=== PATIENT | male | born 1960 | race Caucasian/White ===

== ENCOUNTER 2017-01-18 07:50 | Day surgery (SDC) | payer MEDICARE, MEDICAID ==
[~2017-01-18] VITALS: Ht 177.8 cm; Wt 126.9 kg
[2017-01-18] MEDS ORDERED: IOHEXOL 350 MG/ML 50 ML BTL (for RAD DIAG) OTHER ONE (07:51)
[2017-01-18 08:10] VITALS: BP 102/54; PULSE 68; RESP 20; TEMP 97.5; O2SAT 90
[2017-01-18] MEDS ORDERED: SEVE800T PO (08:11)
[2017-01-18] MEDS ORDERED: ERGO2000 PO (08:11)
[2017-01-18] MEDS ORDERED: CLON0.2T PO (08:11)
[2017-01-18] MEDS ORDERED: SENS90TA PO (08:11)
[2017-01-18] MEDS ORDERED: FURO1TAB61 PO (08:11)
[2017-01-18] MEDS ORDERED: LISI10TA3 PO (08:11)
[2017-01-18] MEDS ORDERED: ATOR20TA15 PO (08:11)
[2017-01-18] MEDS ORDERED: ALLO100T PO (08:11)
[2017-01-18] MEDS ORDERED: LORA-373 PO (08:11)
[2017-01-18] MEDS ORDERED: GABA300C5 PO (08:11)
[2017-01-18] MEDS ORDERED: CINA30 PO (08:11)
[2017-01-18] MEDS ORDERED: ZOFR4TAB PO (08:11)
[2017-01-18] MEDS ORDERED: CARV3.125 PO (08:11)
[2017-01-18] MEDS ORDERED: SODIUM CHLORIDE FLUSH PRN IV FLUSH (09:00)
[2017-01-18] MEDS ORDERED: SODIUM CHLORIDE FLUSH BID IV FLUSH SCH (09:00)
[2017-01-18] MEDS ORDERED: MIDAZOLAM HCL 2 MG/2 ML VIAL ONE (09:16)
[2017-01-18 09:21] LABS: BICARBONATE 25.5 MEQ/L (21.0-32.0); POTASSIUM 4.5 MEQ/L (3.5-5.1)
[2017-01-18] MEDS ORDERED: VANCOMYCIN HCL 1000 MG VIAL ONE (09:40)
--- NOTE | 2017-01-18 09:59 | PD.RAD ---
Post Procedure Progress Note Pre Procedure Diagnosis: (1) PD catheter dysfunction Post Procedure Diagnosis: (1) PD catheter dysfunction Procedure Date: Jan 18, 2017 Supervising Radiologist: Santiago Mccarthy Anesthesia: Conscious Sedation Plan of Activity Patient to Unit: ROPU Patient Condition: Good Additional Comments: PD catheter repositioned to the left abdomen from the right pelvis. catheter flushes and aspirated normally. Pt. tolerated the procedure well. See PACS Report for procedural detail/treatment Santiago Mccarthy MD Jan 18, 2017 09:59
[2017-01-18 10:05] VITALS: BP 99/50; PULSE 61; RESP 20; TEMP 97.5; O2SAT 92
[2017-01-18 10:20] VITALS: BP 93/54; PULSE 62; RESP 20; O2SAT 92
[2017-01-18 10:45] VITALS: BP 113/56; PULSE 64; RESP 20; O2SAT 92
--- NOTE | 2017-01-18 10:58 | RADRPT ---
EXAM DATE/TIME: 01/18/2017 09:10 [facility] COMPARISON: PERITONEOGRAM, January 18, 2017, 0:00. INDICATIONS : Patient with history of end stage renal disease in need of evaluation and possible reposition of a pe ritoneal catheter. MEDICAL HISTORY : 1.DM 2.ESRD 3.Osteodystrophy 4.Osteomalacia 5.Hyperlipidemia 6.Iron deficiency 7.CKD 8.Hyperparathyroidism SURGICAL HISTORY : 1.AVF fistula 2.Nephrectomy 3.Right knee 4.Hernia repair x 2 5.Peritoneal catheter placement ENCOUNTER: Initial ACUITY: > 1 year PAIN SCORE: 0/10 FLUORO TIME: 0.5 minutes IMAGE SERIES: 4 SEDATION TIME: 30minutes CONTRAST: 15 cc Omnipaque (iohexol) 350 MEDICATION(S): 1.) 0.5 mg midazolam (Versed) IV 2.) 25 mcg fentanyl (Sublimaze) IV 3.) 1 g Vancomycin IV PROCEDURE : 1. Peritoneogram 2. Conscious sedation with continuous EKG and Oximetry monitoring. 3. Peritoneal catheter repositioning. The risks, benefits and alternatives to the procedure were explained and verbal and written consent w as obtained. The site was prepped in sterile fashion. Full sterile technique was used, including ca p, mask, sterile gloves and gown and a large sterile sheet. Hand hygiene and 2% chlorhexidine prep w as utilized per protocol for cutaneous antisepsis with appropriate dry time for site. The catheter was accessed using sterile technique. Approximately 5 cc of contrast was administered to the catheter. There was free flow of contrast into the peritoneal cavity. The patient's primary comp laint was the catheter would not drain in the sitting position. A 0.035 angle Glidewire was advanced through the catheter. The catheter was repositioned from the low est point in the pelvis on the left over to the right side of the abdomen. Following repositioning of the catheter there was drainage dialysis fluid from the catheter. Conscious sedation was performed with the prescribed dosages and duration as above in the presence of an independent trained radiology nurse to assist in the monitoring of the patient. EKG and oximetry remained stable throughout the procedure. CONCLUSION: 1. Uncomplicated repositioning of the patient's peritoneal dialysis catheter. Santiago Mccarthy MD on January 18, 2017 at 10:53 Board Certified Radiologist. This report was verified electronically.
[2017-01-18 11:15] VITALS: BP 118/41; PULSE 63; RESP 20; O2SAT 92
[2017-01-18 11:45] VITALS: BP 107/59; PULSE 65; RESP 16; O2SAT 92
== END 2017-01-18 12:07 | disposition home or self-care (01) ==
LOC: HROP 07:50 → HRIP 07:51 → HROP 12:07
DX: T85.611A Breakdown (mechanical) of intraperitoneal dialysis catheter, initial encounter (principal); N18.6 End stage renal disease; E78.5 Hyperlipidemia, unspecified; E11.9 Type 2 diabetes mellitus without complications; D50.9 Iron deficiency anemia, unspecified
CPT/HCPCS: 49999; 74190; 80048; 99152; 99153; C1769; J2250; J3010; J3370; Q9967; 49400

== ENCOUNTER 2017-02-06 08:08 | Day surgery (SDC) | payer MEDICARE, MEDICAID ==
[~2017-02-06] VITALS: Ht 177.8 cm; Wt 122.7 kg
[~2017-02-06 08:08] MED LIST: ALLO100T PO; ATOR20TA15 PO; CARV3.125 PO; CINA30 PO; CLON0.2T PO; ERGO2000 PO; FURO1TAB61 PO; GABA300C5 PO; LISI10TA3 PO; LORA-373 PO; SENS90TA PO; SEVE800T PO; ZOFR4TAB PO
[2017-02-06] MEDS ORDERED: IOHEXOL 350 MG/ML 100 ML BTL (for RAD DIAG) OTHER ONE (08:09)
[2017-02-06 08:31] VITALS: BP 214/107; PULSE 74; RESP 20; TEMP 97.8; O2SAT 95
[2017-02-06] MEDS ORDERED: SODIUM CHLORIDE 0.9% 1000 ML IV SCH (09:00)
[2017-02-06] MEDS ORDERED: MIDAZOLAM HCL 5 MG/5 ML VIAL ONE (09:11)
[2017-02-06] MEDS ORDERED: ceFAZolin 2 GM PREMIX 50 ML ONE (09:33)
[2017-02-06 09:35] LABS: POTASSIUM 5.1 MEQ/L (3.5-5.1)
[2017-02-06 09:50] VITALS: BP 164/105; PULSE 72; RESP 18; TEMP 97.6; O2SAT 92
--- NOTE | 2017-02-06 09:51 | PD.RAD ---
Post Procedure Progress Note Pre Procedure Diagnosis: (1) PD catheter dysfunction Post Procedure Diagnosis: (1) PD catheter dysfunction Procedure Date: Feb 06, 2017 Supervising Radiologist: Santiago Tomlin Proceduralist/Assist: RT Bulmaro(R), RT Denia(R) Anesthesia: Analgesia, Conscious Sedation Plan of Activity Patient to Unit: ROPU Patient Condition: Good See PACS Report for procedural detail/treatment Drainage Procedure Procedure 1 Imaging Guidance: Fluoroscopy Procedure Type: Peritoneal Catheter Tunneled Procedure: Reposition, Evaluation Findings: Fibrin sheath around cath tip in RLQ. Catheter manipulated into right paracolic gutter. Injects and aspirates without difficulty. Santiago Tomlin MD Feb 06, 2017 09:51
[2017-02-06 10:05] VITALS: BP 156/86; PULSE 73; RESP 18; O2SAT 92
[2017-02-06 10:35] VITALS: BP 156/85; PULSE 76; RESP 18; O2SAT 95
--- NOTE | 2017-02-06 12:35 | RADRPT ---
EXAM DATE/TIME: 02/06/2017 08:48 [facility] COMPARISON: PERITONEAL CATHETER REPOSITION, January 18, 2017, 9:10. INDICATIONS : Patient presents with non functioning peritoneal dialysis catheter in need of evaluation with manipul ation. MEDICAL HISTORY : 1.DM 2.ESRD 3.Osteodystrophy 4.Osteomalacia 5.Hyperlipidemia 6.Iron deficiency 7.CKD 8.Hyperparathyroidism SURGICAL HISTORY : 1.AVF fistula 2.Nephrectomy 3.Right knee 4.Hernia repair x 2 5.Peritoneal catheter placement ENCOUNTER: Subsequent ACUITY: > 1 year PAIN SCORE: 0/10 LOCATION: N/A FLUORO TIME: 1.7 minutes IMAGE SERIES: 3 SEDATION TIME: 10minutes CONTRAST: 15 cc Omnipaque (iohexol) 350 MEDICATION(S): 1.) 0.5 mg midazolam (Versed) IV 2.) 25 mcg fentanyl (Sublimaze) IV 3.) 2 g cefazolin (Ancef) IV PROCEDURE : 1. injection and repositioning of poorly functioning PD catheter. 2. Conscious sedation with continuous EKG and Oximetry monitoring. The risks, benefits and alternatives to the procedure were explained and verbal and written consent w as obtained. The site was prepped in sterile fashion. Full sterile technique was used, including ca p, mask, sterile gloves and gown and a large sterile sheet. Hand hygiene and 2% chlorhexidine prep w as utilized per protocol for cutaneous antisepsis with appropriate dry time for site. The skin and s ubcutaneous tissues were infiltrated with local anesthetic solution. PD catheter it was injected showing an initial cephalad course, 180 turn with a proximal connector i n the distal loop coiled over the superior aspect of the right SI joint. There appear to be a fibrin sheath around the coil. A stiff Glidewire was advanced through the catheter and used to reposition th e distal end of the catheter into the right paracolic gutter. Contrast injection showed free flow fro m the catheter into the paracolic gutter and the catheter appear to aspirate freely. Conscious sedation was performed with the prescribed dosages and duration as above in the presence of an independent trained radiology nurse to assist in the monitoring of the patient. EKG and oximetry remained stable throughout the procedure. CONCLUSION: Successful repositioning of the PD catheter into the right paracolic gutter region as above. Santiago Tomlin MD on February 06, 2017 at 12:30 Board Certified Radiologist. This report was verified electronically.
== END 2017-02-06 11:13 | disposition home or self-care (01) ==
LOC: HROP 08:08 → HRIP 08:10 → HROP 11:13
PROVIDERS: ATTEND Radiology Body Imaging
DX: T82.898A Other specified complication of vascular prosthetic devices, implants and grafts, initial encounter (principal); E11.22 Type 2 diabetes mellitus with diabetic chronic kidney disease; N18.6 End stage renal disease; E78.5 Hyperlipidemia, unspecified; E21.3 Hyperparathyroidism, unspecified; Y83.8 Other surgical procedures as the cause of abnormal reaction of the patient, or of later complication, without mention of misadventure at the time of the procedure
CPT/HCPCS: 49400; 49999; 74190; 80048; 99152; C1769; J0690; J2250; J3010; J7030; Q9967

== ENCOUNTER 2017-10-19 10:23 | Day surgery (SDC) | payer MEDICARE, MEDICAID ==
[~2017-10-19] VITALS: Ht 177.8 cm; Wt 120.0 kg
[~2017-10-19 10:23] MED LIST changes: -LORA-373 PO; +LORA0.5T PO; +SEVE800 PO; -SEVE800T PO
[2017-10-19] MEDS ORDERED: IOHEXOL 350 MG/ML 50 ML BTL (for RAD DIAG) OTHER ONE (10:24)
[2017-10-19 10:41] VITALS: BP 162/87; PULSE 70; RESP 20; TEMP 97.9; O2SAT 98
[2017-10-19] MEDS ORDERED: LYRI50CA PO (10:49)
[2017-10-19] MEDS ORDERED: ASPI81CH6 CHEW (10:49)
[2017-10-19] MEDS ORDERED: COLA100C5 PO (10:49)
[2017-10-19] MEDS ORDERED: SODIUM CHLORIDE 0.9% 1000 ML IV SCH (11:15)
[2017-10-19] MEDS ORDERED: ceFAZolin 2 GM PREMIX 50 ML - implanted port/tunneled catheter insertion IV SCH (11:15)
[2017-10-19 11:59] LABS: AUTOMATED NEUTROPHIL # 3.7 TH/MM3 (1.8-7.7); BASOPHIL % 0.7 % (0.0-2.0); EOSINOPHIL # 0.3 TH/MM3 (0-0.4); EOSINOPHIL % 4.5 % (0.0-4.0); HEMATOCRIT 25.9 % (39.0-51.0); HEMOGLOBIN 8.5 GM/DL (13.0-17.0); LYMPH % 17.2 % (9.0-44.0); MEAN CELL VOLUME 100.9 FL (80.0-100.0); MEAN CORPUSCULAR HEMOGLOBIN 33.3 PG (27.0-34.0); MEAN PLATELET VOLUME 8.6 FL (7.0-11.0); MONO % 13.5 % (0.0-8.0); MONOCYTE # 0.8 TH/MM3 (0-0.9); NEUT % 64.1 % (16.0-70.0); PLATELET COUNT 170 TH/MM3 (150-450); RED BLOOD COUNT 2.56 MIL/MM3 (4.50-5.90); RED CELL DISTRIBUTION WIDTH 15.6 % (11.6-17.2); WHITE BLOOD COUNT 5.7 TH/MM3 (4.0-11.0)
[2017-10-19 12:07] LABS: PROTHROMBIN TIME - PATIENT 10.4 SEC (9.8-11.6)
[2017-10-19 12:19] LABS: BICARBONATE 25.2 MEQ/L (21.0-32.0)
[2017-10-19 12:36] LABS: CREATININE 15.76 MG/DL (0.60-1.30)
[2017-10-19] MEDS ORDERED: MIDAZOLAM HCL 2 MG/2 ML VIAL ONE (12:39)
--- NOTE | 2017-10-19 13:32 | PD.RAD ---
Post Procedure Progress Note Pre Procedure Diagnosis: (1) PD catheter dysfunction Post Procedure Diagnosis: (1) PD catheter dysfunction Procedure Date: Oct 19, 2017 Supervising Radiologist: Santiago Mccarthy Estimated blood loss: none Anesthesia: Local, Conscious Sedation Plan of Activity Patient to Unit: ROPU Patient Condition: Good Additional Comments: PD cath evaluated. contrast flows freely from the catheter. The catheter does have a kink as it comes through the peritoneal lining. Multiple attempts made to reposition the catheter lower down into the pelvis. Full dictated report to follow See PACS Report for procedural detail/treatment Santiago Mccarthy MD Oct 19, 2017 13:32
[2017-10-19 13:40] VITALS: BP 147/80; PULSE 72; RESP 20; TEMP 97.1; O2SAT 72; O2SAT 98
[2017-10-19 13:55] VITALS: BP 168/85; PULSE 66; RESP 20; O2SAT 98
[2017-10-19 14:25] VITALS: BP 170/88; PULSE 65; RESP 20; O2SAT 98
--- NOTE | 2017-10-19 14:32 | RADRPT ---
EXAM DATE: 10/19/2017 1:59 PM EDT AGE/SEX: 56 years / Male INDICATIONS: Patient presents with history of end stage renal disease in need of evaluation of perit alvarez catheter with possible reposition. CLINICAL DATA: This is the patient's subsequent encounter. Patient reports that signs and symptoms h ave been present for > 1 year and indicates a pain score of 0/10. MEDICAL/SURGICAL HISTORY: DM.ESRD.Osteodystrophy.Osteomalacia.Hyperlipidemia.Iron deficiency .CK D.Hy perp charla thyroidism. AV Fistula. Nephrectomy. Right knee surgery. Hernia repair X 2.Peritoneal delma ter. COMPARISON: No prior exams available for comparison. FLUORO TIME (min): 7.5 IMAGE SERIES: 7 ACCESS SITE: SEDATION TIME (min): 30 CONTRAST (cc): 10cc Omnipaque (iohexol) 350 MEDICATION(S): 1mg midazolam (Versed) IV 50mcg fentanyl (Sublimaze) IV DEVICE(S): PROCEDURE: 1. Fluoroscopically guided PD catheter manipulation. The risks, benefits and alternatives to the procedure were explained and verbal and written consent w as obtained. The site was prepped in sterile fashion. Full sterile technique was used, including ca p, mask, sterile gloves and gown and a large sterile sheet. Hand hygiene and 2% chlorhexidine prep w as utilized per protocol for cutaneous antisepsis with appropriate dry time for site. The skin and s ubcutaneous tissues were infiltrated with local anesthetic solution. With fluoroscopic guidance the PD catheter was evaluated. Injection of contrast demonstrated free bess w of contrast away from the distal aspect of the catheter and into the peritoneal cavity. The examination demonstrates a focal kink in the catheter as it enters the peritoneal cavity. With th e patient lying down this produces only a mild degree of obstruction however I would believe when the patient is sitting upright this likely results in a kink in the catheter and prevents removal of the dialysis fluid. Multiple attempts were made to reposition the catheter with a 0.035 angle Glidewire and flex finder w navneet. The distal portion of the catheter could be repositioned in the pelvis however the kink at the a bdominal wall appears to be related to the crossing of the catheter into the peritoneal cavity. This could be opened up with a wire however it immediately return once the wire was removed. CONCLUSION: 1. There is free flow of contrast away from the distal portion of the catheter. 2. There is a high-grade kink within the catheter as it enters the peritoneal cavity which likely re sults in obstruction of the catheter when the patient is sitting upright. Electronically signed by: Santiago Mccarthy MD 10/19/2017 2:30 PM EDT
[2017-10-19 14:55] VITALS: BP 166/83; PULSE 66; RESP 20; O2SAT 99
== END 2017-10-19 15:30 | disposition home or self-care (01) ==
LOC: HROP 10:23 → HRIP 10:24 → HROP 15:30
DX: N18.6 End stage renal disease (principal); Z79.899 Other long term (current) drug therapy; I10 Essential (primary) hypertension
CPT/HCPCS: 49400; 74190; 80048; 85025; 85610; 85730; 99152; 99153; C1769; J2250; J3010; Q9967